=== PATIENT | male | born 1995 | race Caucasian/White ===

== ENCOUNTER 2018-11-26 21:31 | Emergency (ER) | payer BC ==
[2018-11-26] MEDS ORDERED: SODIUM CHLORIDE 0.9% 1,000 ML IV STA (22:03)
[2018-11-26 22:38] LABS: Basophils # (A) 0.1 k/uL (0-0.2); Basophils % (A) 1 %; Eosinophils # (A) 0.2 k/uL (0-0.7); Eosinophils % (A) 2 %; HCT 44.8 % (39.0-53.0); HGB 15.3 gm/dL (13.0-17.5); Lymphocytes # (A) 1.7 k/uL (1.0-4.8); Lymphocytes % (A) 20 %; MCH 29.9 pg (25.0-35.0); MCV 87.8 fL (80.0-100.0); Mean Platelet Volume 7.5; Monocytes # (A) 0.4 k/uL (0-1.0); Monocytes % (A) 4 %; Neutrophils % (A) 71 %; Platelet Count 239 k/uL (150-450); RDW 13.1 % (11.5-15.5); WBC 8.5 k/uL (3.8-10.6)
[2018-11-26 22:51] LABS: ALT 26 U/L (21-72); AST 28 U/L (17-59); Albumin 4.8 g/dL (3.5-5.0); Alkaline Phosphatase 80 U/L (38-126); Anion Gap 11 mmol/L; Blood Urea Nitrogen 15 mg/dL (9-20); Calcium 9.8 mg/dL (8.4-10.2); Carbon Dioxide 23 mmol/L (22-30); Chloride 107 mmol/L (98-107); Glucose 93 mg/dL (74-99); Magnesium 1.9 mg/dL (1.6-2.3); Potassium 3.9 mmol/L (3.5-5.1); Sodium 141 mmol/L (137-145); Total Bilirubin 0.4 mg/dL (0.2-1.3); Total Protein 7.5 g/dL (6.3-8.2)
--- NOTE | 2018-11-26 22:54 | XR ---
EXAM: XR Chest, 2 Views CLINICAL HISTORY: Dysrhythmia TECHNIQUE: Frontal and lateral views of the chest. COMPARISON: No relevant prior studies available. FINDINGS: Lungs: Unremarkable. No consolidation. Pleural space: Unremarkable. No pneumothorax. Heart: Unremarkable. No cardiomegaly. Mediastinum: Unremarkable. Bones/joints: Unremarkable. IMPRESSION: Normal chest x-rays.
--- NOTE | 2018-11-26 23:06 | ED ---
Arrhythmia/Palpitations HPI - General Chief Complaint: Arrhythmia/Palpitations Stated Complaint: Heart Palpitations Time Seen by Provider: 11/26/18 22:03 Source: patient Mode of arrival: ambulatory Limitations: no limitations - History of Present Illness Initial Comments: Kikr is a previously healthy 23-year-old woman who presents the emergency department today for evaluation of palpitations. Patient reports he's noticed intermittent palpitations for a few months duration however over the past 4 days he feels like they're happening very frequent early. He states that this afternoon he was at work and he felt like he is having frequent palpitations Butler feel somewhat lightheaded. Patient denies any cardiac history he denies any family history of significant cardiac events. Patient reports he drinks 1-2 caffeinated drinks daily, he doesn't take any supplements or energy pills or weight loss pills, he does report that he drinks alcohol intermittently and was drinking this weekend. She denies any chest pain, pressure or shortness of breath. He recent illness, fevers, chills, nausea, vomiting he is not taking any [id number] medi cations including anti-is to means or decongestants. - Related Data Home Medications Medication Instructions Recorded Confirmed Ibuprofen [Motrin Ib] 200 mg PO Q6H 11/26/18 11/26/18 Allergies Allergy/AdvReac Type Severity Reaction Status Date / Time No Known Allergies Allergy Verified 11/26/18 21:37 Review of Systems ROS Statement: Those systems with pertinent positive or pertinent negative responses have been documented in the HPI. ROS Other: All systems not noted in ROS Statement are negative. Past Medical History Past Medical History: No Reported History History of Any Multi-Drug Resistant Organisms: None Reported Past Surgical History: No Surgical Hx Reported Past Psychological History: ADD/ADHD, Anxiety, Depression Smoking Status: Light tobacco smoker Past Alcohol Use History: Occasional Past Drug Use History: None Reported General Exam - General Exam Comments Initial Comments: Physical Exam GENERAL: Patient is well-developed and well-nourished. Patient is nontoxic and well-hydrated and is in no distress. HENT: Normocephalic, Atraumatic. EYES: PERRL, EOMI PULMONARY: Unlabored respirations. No audible rales rhonchi or wheezing was noted. CARDIOVASCULAR: There is a regular rate and rhythm without any murmurs gallops or rubs. ABDOMEN: Soft and nontender with normal bowel sounds. SKIN: Skin is clear with no lesions or rashes and otherwise unremarkable. : Deferred NEUROLOGIC: Patient is alert and oriented x3. Moving all extremities spontaneously MUSCULOSKELETAL: Normal extremities with adequate strength and full range of motion. No lower extremity swelling or edema. No calf tenderness. PSYCHIATRIC: Normal psychiatric evaluation. Limitations: no limitations Course Vital Signs 11/26/18 21:34 Temperature 98.5 F Pulse Rate 95 Respiratory 18 Rate Blood Pressure 147/97 O2 Sat by Pulse 96 Oximetry EKG Findings - EKG Comments: EKG Findings:: EKG was obtained to evaluate for palpitations. EKG obtained at 2140 rate is 67 rhythm is sinus there is normal axis there are normal intervals, TN 120, QRS 90, QT 364, QTC is 384 there are no acute ST elevations or depressions there is no evidence of acute ischemia, infarction or arrhythmia there is no ectopy on this EKG. Medical Decision Making - Medical Decision Making Patient was seen and evaluated history obtained from patient and EKG is nonischemic with no signs of arrhythmia or ectopy Labs and imaging were ordered to ensure the patient has normal electrolytes and thyroid Labs were unremarkable with no abnormalities noted neck sign patient's telemetry monitoring was reviewed and there were intermittent PVCs. These did relate with when the patient fell he was having skipped beats. I advised him that these are nonpathological normal findings, I advised to decrease alcohol intake, decrease caffeine intake and drink plenty of fluids. All questions pertaining care were answered return parameters were discussed patient was discharged home in stable condition. - Lab Data Result diagrams: 11/26/18 22:25 11/26/18 22:25 Lab Results 11/26/18 11/26/18 Range/Units 22:25 22:25 WBC 8.5 (3.8-10.6) k/uL RBC 5.10 (4.30-5.90) m/uL Hgb 15.3 (13.0-17.5) gm/dL Hct 44.8 (39.0-53.0) % MCV 87.8 (80.0-100.0) fL MCH 29.9 (25.0-35.0) pg MCHC 34.0 (31.0-37.0) g/dL RDW 13.1 (11.5-15.5) % Plt Count 239 (150-450) k/uL Neutrophils % 71 % Lymphocytes % 20 % Monocytes % 4 % Eosinophils % 2 % Basophils % 1 % Neutrophils # 6.0 (1.3-7.7) k/uL Lymphocytes # 1.7 (1.0-4.8) k/uL Monocytes # 0.4 (0-1.0) k/uL Eosinophils # 0.2 (0-0.7) k/uL Basophils # 0.1 (0-0.2) k/uL Sodium 141 (137-145) mmol/L Potassium 3.9 (3.5-5.1) mmol/L Chloride 107 (98-107) mmol/L Carbon Dioxide 23 (22-30) mmol/L Anion Gap 11 mmol/L BUN 15 (9-20) mg/dL Creatinine 0.86 (0.66-1.25) mg/dL Est GFR (CKD-EPI)AfAm >90 (>60 ml/min/1.73 sqM) Est GFR (CKD-EPI)NonAf >90 (>60 ml/min/1.73 sqM) Glucose 93 (74-99) mg/dL Calcium 9.8 (8.4-10.2) mg/dL Magnesium 1.9 (1.6-2.3) mg/dL Total Bilirubin 0.4 (0.2-1.3) mg/dL AST 28 (17-59) U/L ALT 26 (21-72) U/L Alkaline Phosphatase 80 (38-126) U/L Total Protein 7.5 (6.3-8.2) g/dL Albumin 4.8 (3.5-5.0) g/dL Disposition Clinical Impression: Palpitations Disposition: HOME SELF-CARE Condition: Stable Instructions (If sedation given, give patient instructions): Heart Palpitations (ED) Additional Instructions: Decrease caffeine intake, decrease alcohol consumption, make sure well-hydrated. If he continued to have symptoms follow-up with her primary care physician for referral to cardiology. Is patient prescribed a controlled substance at d/c from ED?: No Referrals: None,Stated [Primary Care Provider] - 1-2 days
[2018-11-26 23:39] VITALS: BP 107/71; PULSE 90; RESP 16; TEMP 98.7
== END 2018-11-26 23:42 | disposition home or self-care (01) ==
LOC: EC 21:31
DX: R00.2 Palpitations (principal); I49.3 Ventricular premature depolarization; R42 Dizziness and giddiness; F17.200 Nicotine dependence, unspecified, uncomplicated; Z79.1 Long term (current) use of non-steroidal anti-inflammatories (NSAID)
CPT/HCPCS: 36415; 71046; 80053; 83735; 84443; 84484; 85025; 93005; 96360; 99285

== ENCOUNTER 2021-05-19 07:53 | Emergency (ER) | payer BC, OTHER ==
[2021-05-19 08:08] VITALS: BP 128/85; PULSE 86; RESP 18; TEMP 98
[2021-05-19] MEDS ORDERED: ACET/COD 300 MG/30 MG STARTER PACK 6 TAB BTL PO STA (08:41)
[2021-05-19] MEDS ORDERED: Acetaminophen-Codeine 300-30mg TAB PO STA (08:41)
[2021-05-19] MEDS ORDERED: ORPHENADRINE 30 MG/ML 2 ML VIAL IM STA (08:41)
--- NOTE | 2021-05-19 09:00 | ED ---
Neck Injury/Pain HPI - General Chief Complaint: Neck Pain/Injury Stated Complaint: neck pain Time Seen by Provider: 05/19/21 08:15 Source: patient, family, RN notes reviewed Mode of arrival: ambulatory Limitations: no limitations - History of Present Illness Initial Comments: Patient is a 25-year-old male that presents to the emergency department compla ining of left-sided neck pain. He notes that he this morning with a cough epigastric region and in the damian when he felt less as Get tight. He notes he has full range of motion looking to the left but limited range of motion secondary to pain and tightness looking to the right. Patient notes that he's had episodes like this in the past with this was worse. Patient denied any other issues or complaints. He notes that movement running a car make it worse. He notes that massage has worked in the past to alleviate symptoms. He denied chest pain shortness of breath headache nausea vomiting diarrhea constipation fever fatigue chills. - Related Data Home Medications Medication Instructions Recorded Confirmed Ibuprofen [Motrin Ib] 200 mg PO Q6H 11/26/18 11/26/18 Previous Rx's Medication Instructions Recorded Cyclobenzaprine HCl 10 mg PO TID 7 Days #21 tab 05/19/21 Allergies Allergy/AdvReac Type Severity Reaction Status Date / Time No Known Allergies Allergy Verified 05/19/21 08:08 Review of Systems ROS Statement: Those systems with pertinent positive or pertinent negative responses have been documented in the HPI. ROS Other: All systems not noted in ROS Statement are negative. Past Medical History Past Medical History: No Reported History History of Any Multi-Drug Resistant Organisms: None Reported Past Surgical History: No Surgical Hx Reported Past Psychological History: ADD/ADHD, Anxiety, Depression Smoking Status: Never smoker Past Alcohol Use History: Occasional Past Drug Use History: None Reported General Exam Limitations: no limitations General appearance: alert, in no apparent distress Head exam: Present: atraumatic, normocephalic, normal inspection Eye exam: Present: normal appearance, PERRL, EOMI. Absent: scleral icterus, conjunctival injection, periorbital swelling ENT exam: Present: normal exam, mucous membranes moist Neck exam: Present: normal inspection. Absent: tenderness, meningismus, full ROM (Secondary to pain on the left side tenderness and tightness noted over the scalene and upper trapezius.), lymphadenopathy Respiratory exam: Present: normal lung sounds bilaterally. Absent: respiratory distress, wheezes, rales, rhonchi, stridor Cardiovascular Exam: Present: regular rate, normal rhythm, normal heart sounds. Absent: systolic murmur, diastolic murmur, rubs, gallop, clicks Extremities exam: Present: normal inspection, full ROM, normal capillary refill. Absent: tenderness, pedal edema, joint swelling, calf tenderness Neurological exam: Present: alert, oriented X3 Psychiatric exam: Present: normal affect, normal mood Skin exam: Present: warm, dry, intact, normal color. Absent: rash Course Vital Signs 05/19/21 08:05 Temperature 98 F Pulse Rate 86 Respiratory 18 Rate Blood Pressure 128/85 O2 Sat by Pulse 96 Oximetry Medical Decision Making - Medical Decision Making 25-year-old male with left-sided neck pain, nontraumatic or injury. Upon physical exam patient does have point tenderness and tightness to the left scalenes and upper trapezius. Patient most likely has a moderate muscle strain. Patient is agreeable with discharge home on muscle relaxers. Tylenol 3 starter pack ordered. Tylenol 3 tablet ordered. Case discussed with Dr. Rangel, patient discharge home. Disposition Clinical Impression: Strain of neck muscle Disposition: HOME SELF-CARE Condition: Stable Instructions (If sedation given, give patient instructions): Cervical Strain (ED) Additional Instructions: Please return to the Emergency Department if symptoms worsen or any other concerns. Follow-up primary care 1-2 days. Take muscle relaxers as prescribed. Do not operate or use heavy machinery. Prescriptions: Cyclobenzaprine HCl 10 mg PO TID 7 Days #21 tab Is patient prescribed a controlled substance at d/c from ED?: No Referrals: Nick Hebert MD [Primary Care Provider] - 1-2 days Time of Disposition: 09:00
== END 2021-05-19 09:10 | disposition home or self-care (01) ==
LOC: EC 07:53 → SUPCPDRO 07:53 → EC 09:10
DX: S16.1XXA Strain of muscle, fascia and tendon at neck level, initial encounter (principal); R05.9 Cough, unspecified; R10.13 Epigastric pain; X58.XXXA Exposure to other specified factors, initial encounter
CPT/HCPCS: 96372 ×2; 99283 ×2; J2360

== ENCOUNTER 2023-05-31 10:28 | Emergency (ER) | payer OTHER ==
--- NOTE | 2023-05-31 11:04 | ED ---
Back Pain HPI - General Chief Complaint: Back Pain/Injury Stated Complaint: Back pain Time Seen by Provider: 05/31/23 11:03 Source: patient, RN notes reviewed Limitations: no limitations - History of Present Illness Initial Comments: 27-year-old male presents emergency Department chief complaint of left-sided rib pain, back pain. Patient states he was lifting his son up when he felt something pop in the left side of his rib. He states hurts with movement he states he does feel short of breath because of pain but is not for sure breath at rest no abdominal pain no other complaints. He states he has pain with range of motion, movement. - Related Data Home Medications Medication Instructions Recorded Confirmed Ibuprofen [Motrin Ib] 200 mg PO Q6H 11/26/18 11/26/18 Previous Rx's Medication Instructions Recorded Cyclobenzaprine HCl 10 mg PO TID 7 Days #21 tab 05/19/21 Cyclobenzaprine [Flexeril] 10 mg PO TID PRN #15 tab 05/31/23 Ibuprofen [Motrin] 600 mg PO Q8HR PRN #20 tab 05/31/23 Allergies Allergy/AdvReac Type Severity Reaction Status Date / Time No Known Allergies Allergy Verified 05/19/21 08:08 Review of Systems ROS Statement: Those systems with pertinent positive or pertinent negative responses have been documented in the HPI. ROS Other: All systems not noted in ROS Statement are negative. Past Medical History Past Medical History: No Reported History History of Any Multi-Drug Resistant Organisms: None Reported Past Surgical History: No Surgical Hx Reported Past Psychological History: ADD/ADHD, Anxiety, Depression Smoking Status: Never smoker Past Alcohol Use History: Daily Past Drug Use History: None Reported General Exam Limitations: no limitations General appearance: alert, in no apparent distress Head exam: Present: atraumatic, normocephalic, normal inspection Eye exam: Present: normal appearance, PERRL, EOMI. Absent: scleral icterus, conjunctival injection, periorbital swelling ENT exam: Present: normal exam, normal oropharynx, mucous membranes moist Neck exam: Present: normal inspection, full ROM. Absent: tenderness, meningismus, lymphadenopathy Respiratory exam: Present: normal lung sounds bilaterally, chest wall tenderness. Absent: respiratory distress, wheezes, rales, rhonchi, stridor Cardiovascular Exam: Present: regular rate, normal rhythm, normal heart sounds. Absent: systolic murmur, diastolic murmur, rubs, gallop, clicks GI/Abdominal exam: Present: soft, normal bowel sounds. Absent: distended, tenderness, guarding, rebound, rigid Back exam: Present: full ROM, tenderness, paraspinal tenderness. Absent: vertebral tenderness Course Vital Signs 05/31/23 05/31/23 10:58 12:19 Temperature 98.3 F 98.3 F Pulse Rate 75 70 Respiratory 18 18 Rate Blood Pressure 162/95 145/82 O2 Sat by Pulse 99 99 Oximetry Medical Decision Making - Medical Decision Making Was pt. sent in by a medical professional or institution (, [facility], SEISMIC PROSPECTING OBSERVER HELPER, urgent care, hospital, or long term...) When possible be specific @ -No Did you speak to anyone other than the patient for history (EMS, parent, family, police, friend...)? What history was obtained from this source @ -No Did you review nursing and triage notes (agree or disagree)? Why? @ -I reviewed and agree with nursing and triage notes Were old charts reviewed (outside hosp., previous admission, EMS record, old EKG, old radiological studies, urgent care reports/EKG's, long term records)? Report findings @ -No old charts were reviewed Differential Diagnosis (chest pain, altered mental status, abdominal pain women, abdominal pain men, vaginal bleeding, weakness, fever, dyspnea, syncope, headache, dizziness, GI bleed, back pain, seizure, CVA, palpatations, mental health, musculoskeletal)? @ -Rib fracture, thoracic strain, pneumothorax EKG interpreted by me (3pts min.). @ -None X-rays interpreted by me (1pt min.). @ -X-ray rib series left no acute fracture no pneumothorax CT interpreted by me (1pt min.). @ -None done U/S interpreted by me (1pt. min.). @ -None done What testing was considered but not performed or refused? (CT, X-rays, U/S, labs)? Why? @ -None What meds were considered but not given or refused? Why? @ -None Did you discuss the management of the patient with other professionals (professionals i.e. [employer]TA[employer] Morel, SEISMIC PROSPECTING OBSERVER HELPER, lab, RT, psych nurse, social studies teacher, collar sewer, teacher, executive officer, case finisher)? Give summary @ -No Was smoking cessation discussed for >3mins.? @ -No Was critical care preformed (if so, how long)? @ -No Were there social determinants of health that impacted care today? How? (Homelessness, low income, unemployed, alcoholism, drug addiction, transportation, low edu. Level, literacy, decrease access to med. care, fpc, rehab)? @ -No Was there de-escalation of care discussed even if they declined (Discuss DNR or withdrawal of care, Hospice)? DNR status @ -No What co-morbidities impacted this encounter? (DM, HTN, Smoking, COPD, CAD, Cancer, CVA, ARF, Chemo, Hep., AIDS, mental health diagnosis, sleep apnea, morbid obesity)? @ -None Was patient admitted / discharged? Hospital course, mention meds given and route, prescriptions, significant lab abnormalities, going to OR and other pertinent info. @ -Discharge patient has a thoracic strain x-rays were negative patient discharged in stable condition: With adequate pain control. Undiagnosed new problem with uncertain prognosis? @ -No Drug Therapy requiring intensive monitoring for toxicity (Heparin, Nitro, Insulin, Cardizem)? @ -No Were any procedures done? @ -No Diagnosis/symptom? @ -Thoracic strain Acute, or Chronic, or Acute on Chronic? @ -Acute Uncomplicated (without systemic symptoms) or Complicated (systemic symptoms)? @ Uncomplicated] Side effects of treatment? @ -No Exacerbation, Progression, or Severe Exacerbation? @ -No Poses a threat to life or bodily function? How? (Chest pain, [place], [place], pneumonia, PE, COPD, DKA, ARF, appy, cholecystitis, CVA, Diverticulitis, Homicidal, Suicidal, threat to staff... and all critical care pts) @ -No Disposition Clinical Impression: Strain of thoracic back region Disposition: HOME SELF-CARE Condition: Stable Instructions (If sedation given, give patient instructions): Thoracic Back Strain (ED) Additional Instructions: Please return to the Emergency Department if symptoms worsen or any other concerns. Prescriptions: Cyclobenzaprine [Flexeril] 10 mg PO TID PRN #15 tab PRN Reason: Muscle Spasm Ibuprofen [Motrin] 600 mg PO Q8HR PRN #20 tab PRN Reason: Pain Is patient prescribed a controlled substance at d/c from ED?: No Referrals: Nick Hebert MD [Primary Care Provider] - 1-2 days Time of Disposition: 12:08
[2023-05-31 11:18] VITALS: RESP 18; TEMP 98.3
--- NOTE | 2023-05-31 11:39 | XR ---
EXAMINATION TYPE: XR ribs LT w pa chest xray, 5 views DATE OF EXAM: 05/31/2023 Comparison: 11/26/2018 Clinical History: 27-year-old male with pain Findings: The cardiomediastinal silhouette, aorta, and pulmonary vasculature are within normal limits. Lungs and pleural spaces are clear. No displaced left rib fracture seen. Impression: No acute cardiopulmonary process. No displaced left rib fracture seen.
[2023-05-31] MEDS ORDERED: ACET/COD 300 MG/30 MG STARTER PACK 6 TAB BTL PO STA (12:06)
[2023-05-31] MEDS ORDERED: CYCLOBENZAPRINE 10MG STARTER 3 TAB BTL PO STA (12:06)
[2023-05-31 12:45] VITALS: BP 145/82; PULSE 70
== END 2023-05-31 12:20 | disposition home or self-care (01) ==
LOC: EC 10:28
DX: S29.012A Strain of muscle and tendon of back wall of thorax, initial encounter (principal); X50.0XXA Overexertion from strenuous movement or load, initial encounter
CPT/HCPCS: 99283